=== PATIENT | male | born 1945 | race Caucasian/White ===

== ENCOUNTER → 2017-10-15 07:49 | Outpatient (CLI) | payer MEDICARE, OTHER, SELFPAY ==
[2017-10-15 08:42] LABS: Hematocrit 46.3 % (41-53); Hemoglobin 15.3 g/dL (13.5-17.5); Mean Corpuscular Hemoglobin 31.6 PG (26-34); Mean Corpuscular Volume 95.8 fL (80-100); Platelet Count 337 X10^3/uL (150-400); Red Blood Cell Count 4.84 X10^6/uL (4.5-5.9); Red Cell Distribution Width 14.4 % (11.6-14.8); White Blood Cell Count 21.7 X10^3/uL (4.5-11.0)
[2017-10-15 08:52] LABS: Add Manual Diff / Slide Review YES
[2017-10-15 09:10] LABS: Neutrophils Absolute Manual 6510 /uL (3000-5900); Total Cells Counted 100
[2017-10-15 09:11] LABS: RBC Morphology Normal Morphology; Smudge Cells 2+
[2017-10-15 09:41] LABS: Alanine Aminotransferase 34 IU/L (21-72); Albumin 4.3 g/dL (3.5-5.0); Albumin Globulin Ratio 1.5 (1.0-2.8); Alkaline Phosphatase 164 U/L (38-126); Aspartate Aminotransferase 24 IU/L (17-59); Bilirubin Total 0.7 mg/dL (0.2-1.3); Blood Urea Nitrogen 18 mg/dL (9-20); Calcium 9.8 mg/dL (8.4-10.2); Carbon Dioxide 27 mmol/L (22-32); Chloride 102 mmol/L (98-107); Cholesterol 252 mg/dL (140-199); Estimated Glomerular Filt Rate > 60.0 mL/min (>60); Globulin 2.8 g/dL (1.7-4.1); Glucose 102 mg/dL (80-110); HDL Cholesterol 45 mg/dL (40-60); HEMOLYSIS < 15 (0-50); LDL Cholesterol Calculated 184 mg/dL (<100); Potassium 4.5 mmol/L (3.4-5.1); Sodium 141 mmol/L (137-145); Total Protein 7.1 g/dL (6.3-8.2); Triglycerides 117 mg/dL (35-150)
[2017-10-15 09:50] LABS: TSH w/ Reflex to FT4 0.72 uIU/mL (0.47-4.68)
[2017-10-15 10:11] LABS: Prostate Specific Antigen Scrn < 0.064 ng/mL (0.1-4.0)
== END ==
PROVIDERS: PCP Family Medicine; Visit Provider Family Medicine
DX: E78.5 Hyperlipidemia, unspecified (principal); Z00.00 Encounter for general adult medical examination without abnormal findings; Z12.5 Encounter for screening for malignant neoplasm of prostate
CPT/HCPCS: 36415; 80053; 80061; 84443; 85025; G0103

== ENCOUNTER → 2018-02-24 12:54 | Outpatient (CLI) | payer MEDICARE, OTHER, SELFPAY ==
[2018-02-24 13:29] LABS: Hematocrit 44.3 % (41-53); Hemoglobin 14.9 g/dL (13.5-17.5); Mean Corpuscular HGB Conc 33.6 % (30-36); Mean Corpuscular Hemoglobin 32.4 PG (26-34); Mean Corpuscular Volume 96.5 fL (80-100); Platelet Count 353 X10^3/uL (150-400); Red Blood Cell Count 4.59 X10^6/uL (4.5-5.9); Red Cell Distribution Width 13.9 % (11.6-14.8); White Blood Cell Count 22.4 X10^3/uL (4.5-11.0)
[2018-02-24 13:30] LABS: Add Manual Diff / Slide Review YES
[2018-02-24 14:00] LABS: Alanine Aminotransferase 34 IU/L (21-72); Albumin 4.5 g/dL (3.5-5.0); Albumin Globulin Ratio 1.7 (1.0-2.8); Alkaline Phosphatase 159 U/L (38-126); Aspartate Aminotransferase 33 IU/L (17-59); BUN Creatinine Ratio 22.5 (6-22); Bilirubin Total 0.7 mg/dL (0.2-1.3); Blood Urea Nitrogen 18 mg/dL (9-20); Calcium 9.6 mg/dL (8.4-10.2); Carbon Dioxide 24 mmol/L (22-32); Chloride 98 mmol/L (98-107); Estimated Glomerular Filt Rate > 60.0 mL/min (>60); Globulin 2.7 g/dL (1.7-4.1); Glucose 104 mg/dL (80-110); HEMOLYSIS < 15 (0-50); Potassium 4.3 mmol/L (3.4-5.1); Sodium 134 mmol/L (137-145); Total Protein 7.2 g/dL (6.3-8.2)
[2018-02-24 14:22] LABS: Neutrophils Absolute Manual 5824 /uL (3000-5900); Smudge Cells 1+; Total Cells Counted 100
[2018-02-24 14:23] LABS: Anisocytosis 1+
== END ==
PROVIDERS: Internal Medicine Hematology & Oncology; Family Provider Family Medicine; PCP Family Medicine; Visit Provider Nurse Practitioner Gerontology
DX: C91.90 Lymphoid leukemia, unspecified not having achieved remission (principal)
CPT/HCPCS: 36415; 80053; 85025

== ENCOUNTER → 2019-08-16 09:22 | Oncology outpatient (ONC) | payer MEDICARE, OTHER, SELFPAY ==
[2017-09-01 15:35] VITALS: BP 136/99; PULSE 73; RESP 15; TEMP 36.7; O2SAT 97
--- NOTE | 2017-09-01 16:34 | ONC.PN ---
Assessment and Plan - Time Spent with Patient IMPRESSION: 1. Chronic lymphocytic leukemia, diagnosed in 2001 during workup for partial gastrectomy for treatment of GERD and GIST. Treated with rituximab monotherapy by Dr. Vera in [place], [place]. 2. Gastrointestinal stromal tumor status post resection with partial gastrectomy in 2001-3. 3. GERD with plan to treat with Krish fundoplication prompting diagnosis of numbers 1 and 2 above. 4. Lymphocytosis, secondary to 1. 5. History of prostate cancer, Stephany 6, discovered on PSA monitoring and status post prostatectomy performed by Dr. Ruiz in 2008. I reviewed the findings, lab results and plan with him and his today. He feels well and has no new symptoms or findings on examination to raise concern for progressive CLL. No indication for intervention or treatment at this time. Most recent labs from March 08, 2017 showed WBC 20884, 25% neutrophils, 67% lymphocytes, hemoglobin 15.9, hematocrit 40.0, platelet count 144100. He otherwise feels well and has no additional concerns at this time. No GI symptoms or other findings of concern. Reviewed follow-up schedule and plan with him and his today. Recommend he continue close monitoring call back if new symptoms or concerns arise. Would otherwise recommend he check counts at least every 6 months with return visit in 1 year, sooner if problems arise. Repeat CT abdomen and pelvis based on symptoms, clinical concerns or findings on examination. PLAN: 1. Continue self monitoring and call back as needed. 2. Follow up with other providers as planned. 3. CBC, CMP every [address] abdomen/pelvis PRN symptoms or clinical findings. 5. Return appointment here in 1 year. DICTATED BY EVERTON WHELAN MD MEDICAL ONCOLOGY AND HEMATOLOGY PN -Subjective Interval history: HEMATOLOGY/ONCOLOGY PROGRESS NOTE DATE OF SERVICE: SEPTEMBER 01, 2017 PATIENT NAME: COREY CAMPOS DATE OF : 1945 IDENTIFICATION: Mr. Campos is a 72-year-old gentleman with history of CLL and of gastrointestinal stromal tumor (GIST) who returns in follow-up today. INTERVAL HISTORY: He returns in follow-up with his , Tita. HE CONTINUES TO FEEL WELL AND DENIES NEW SYMPTOMS OR SPECIFIC CONCERNS. No fever, night sweats or recent weight loss. He denies abdominal pain, bloating or early satiety. Appetite and energy level are stable. No bruising or rash, bone pain, headaches or new neurologic symptoms. No cough or dyspnea. He has not received treatment for his CLL since completing treatment with rituximab with Dr. Vera into [facility] in 2001. Subsequently followed by Dr. Duran at [facility] for number of years, without treatment and more recently here in [place] by Dr. Valdez. PAST ONCOLOGY HISTORY FROM LAST NOTE: Hx of Present illness The patient is a 71 year old Male who is being seen in the clinic 09/02/16 for chronic lymphocytic leukemia. He has been treated in the past but has been stable off treatment for many years. TIMELINE 1. Incidental discovery of CLL during workup for partial gastrectomy in 2001 and 2002, treated with rituximab monotherapy previously. The schedule and doses are covered in my consultation of 03/20/2011. Followed by Dr. Duran at [facility]. He has not received additional treatment. Past Medical History 2. History of Sara fundoplication with partial gastrectomy in 2001 or 2002 after workup for GERD, with a finding of a GIST which was fully resected and received no further treatment. 3. 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 It was not a neuroendocrine tumor. It was a low-grade tumor. We do not have the details. Surgery was in 04/2004. 4. History of prostate cancer, Stephany 3+3=6, stage IIA, T1 N0 M0, status post radical prostatectomy by Dr. Ruiz 03/29/2009. Past Surgical History 2. History of Sara fundoplication with partial gastrectomy in 2001 or 2002 after workup for GERD, with a finding of a GIST which was fully resected and received no further treatment. 3. 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 It was not a neuroendocrine tumor. It was a low-grade tumor. We do not have the details. Surgery was in 04/2004. 4. History of prostate cancer, [place] 3+3=6, stage IIA, T1 N0 M0, status post radical prostatectomy by Dr. Ruiz 03/29/2009. Past Medical History The patient's past medical history is significant for: SPLENECTOMY Pain level (0-10): 0 Current Medications ASPIRIN (Aspirin EC) 81 MG TABLET.DR 81 MG PO QDAY (Reported) TAKE ONE TABLET BY MOUTH DAILY LISINOPRIL 20 MG TABLET 20 mg PO QDAY HTN Take one tablet by mouth daily. NTBS FOR ANNUAL EXAM AND LABS FOR ADDITIONAL REFILLS. 06/16/16 Prescribed by Kevon Roberts MD Allergies Coded Allergies: No Known Allergies (07/22/16) Patient HAS received vaccine No Reason pt HAS NOT received Vaccine Patient declined Smoking status:+ Former smoker Laboratory Tests Lab ALT 29 IU/L 08/27/16 0751 AST 23 IU/L 08/27/16 0751 Alkaline Phosphatase 151 U/L H 08/27/16 0751 BUN 19.0 mg/dL 08/27/16 0751 Calcium 9.5 mg/dL 08/27/16 0751 Creatinine 0.80 mg/dL 08/27/16 0751 Total Bilirubin 0.6 mg/dL 08/27/16 0751 WBC 28.5 X10^3/uL H 10/31/14 1032 WBC 30.7 X10^3/uL*H 05/28/15 0747 WBC 27.2 X10^3/uL H 06/12/15 0831 WBC 28.1 X10^3/uL H 09/16/15 0836 WBC 24.1 X10^3/uL H 12/18/15 0838 WBC 24.3 X10^3/uL H 03/11/16 0826 WBC 22.6 X10^3/uL H 08/27/16 0751 IgG 757 mg/dL 08/27/16 0751 Diagnostic Imaging PROCEDURE: CHEST/ABDOMEN/PELVIS WITH CONTRAST INDICATIONS: ABDOMINAL PAIN AND LYMPHOMA TECHNIQUE: After the administration of oral and intravenous contrast, 5 mm thick sections acquired from the lung apices to the symphysis. 5 mm coronal and sagittal reformats were performed, with additional 7 mm coronal MIP reformats through the lungs. For radiation dose reduction, the following was used: automated exposure control, adjustment of mA and/or kV according to patient size. COMPARISON: [facility], CT, ABDOMEN/PELVIS WITH CONTRAST, 07/21/2015, 16:32. [facility], CT, CHEST/ABD/PEL WITH CONTRAST, 01/20/2016, 10:34. FINDINGS: Image quality: Excellent. CHEST: Lungs and pleura: No acute airspace opacities. No pleural effusions or pneumothorax. Peripheral chronic fibrotic markings are present but considered unchanged. Central and peripheral airways appear patent and normal in caliber. Mediastinum: Heart size is normal. No pericardial effusion. No mediastinal or hilar adenopathy by size criteria. Thoracic aorta and central pulmonary arteries are normal in size. Esophagus is normal in caliber. No hiatal hernia. Chest wall: No axillary or supraclavicular adenopathy by size criteria. Thyroid gland is within normal limits. ABDOMEN: Solid organs: Liver and spleen are normal in size and enhancement. Gallbladder is within normal limits. Biliary system is non dilated. Pancreas enhances normally. No adrenal nodules. Kidneys demonstrate normal size and enhancement, without hydronephrosis. Peritoneum and bowel: Bowel loops demonstrate normal wall thickness and caliber. No free fluid or air. The appendix is normal Nodes and vessels: No retroperitoneal or mesenteric adenopathy by size criteria. Aorta and inferior vena cava are normal in size. Aorta is atherosclerotic. Miscellaneous: No ventral hernias. PELVIS: Genitourinary: Bladder wall thickness is slightly irregular suggesting small diverticula maybe present at the right base. Prostate is moderately enlarged. Miscellaneous: No inguinal hernias or adenopathy. Bones: No suspicious bony lesions. No vertebral body compression fractures. IMPRESSION: 1. Acute disease is not seen. 2. No increase in adenopathy or adenopathy by size is seen. Spleen remains normal in size. Dictated by: Sebasitan Perez M.D. on 05/29/2016 at 16:28 Assessment/Plan Assessment This is a 71-year-old man with a history of CLL that has not required treatment. Most recent CT imaging in May 2016 showed no evidence of disease. He can continue to be seen in periodic surveillance as described below. Time spent with Patient A total of 30 minutes were spent on this appointment, greater than 50% of that time [id number] with the patient in counseling and coordination of care. Discussion with patient included lab results, [diagnosis], treatment options, risks and benefits. Plan for treatment Labs including CBC CMP and LDH in 6 and 12 months and M.D. visitand physical examination in 12 months. at 3971 <Electronically signed by Darrell Valdez MD> (PLEASE NOTE): This report may have been all or partially generated using a voice recognition software program. While every effort has been made to edit content upon its completion, wax pattern coater errors may occur. Please contact the [facility] [employer] Dept. at if there are any questions, or if further clarification is necessitated. - Additional ROS Additional ROS: Review of systems: General: No recent weight loss, fever or night sweats. HEENT: No headaches, vision change, epistaxis or dysphagia. Respiratory: Negative. Cardiac: Negative. GI: No bloating, nausea, early satiety or weight loss. : Negative. Musculoskeletal: No new bone pain or swelling in the legs. Neurologic: Negative. Results - Imaging Additional studies: Procedures Injection or infusion of other therapeutic or prophylactic substance (11/01/13) RADICAL PROSTATECTOMY (03/29/09) REGIONAL LYMPH NODE EXC (03/29/09) Home Medications and Allergies Home Medications Medication Instructions Recorded Confirmed Type aspirin 81 mg PO QDAY #0 05/18/12 09/01/17 History lisinopril 20 mg tablet 20 mg PO QDAY #90 tab 08/12/17 09/01/17 Rx Allergies Allergy/AdvReac Type Severity Reaction Status Date / Time No Known Drug Allergies Allergy Verified 09/01/17 15:37 Exam Vital signs: Last Vital Signs Temp 98.0 F 09/01/17 15:35 Pulse 73 09/01/17 15:35 Resp 15 09/01/17 15:35 BP 136/99 H 09/01/17 15:35 Pulse Ox 97 09/01/17 15:35 - Constitutional positive no acute distress, positive average body habitus, positive cooperative - Routine HEENT Exam Head: Present: normocephalic, atraumatic. Absent: cushingoid faces, facial swelling Eye: Present: EOMI, PERRL. Absent: conjunctival icterus, scleral injection, periorbital ecchymosis, periorbital swelling ENT: Present: mucous membranes moist, oropharynx clear - Routine Neck Exam Present: supple. Absent: JVD, lymphadenopathy - Routine Chest/Breast/Axilla Exam Axillae: Absent: lymphadenopathy - Routine Respiratory Exam Present: Clear to auscultation bilaterally. Absent: accessory muscle use, rales, wheezes - Routine Cardiovascular Exam Present: RRR, S1, S2. Absent: murmur, S3 - Routine Abdominal Exam Present: soft, normoactive bowel sounds. Absent: distended, guarding, organomegaly Palpation/Percussion: Absent: hepatomegaly - Routine Extremities Exam Present: full ROM. Absent: cyanosis, clubbing, edema - Routine Back/Spine Exam Back/Spine: Absent: paraspinal tenderness - Routine Skin Exam Present: intact. Absent: cyanosis, erythema, petechiae, jaundice, rash, ecchymosis - Routine Neurological Exam Present: alert, oriented X3, moving all extremities, normal tone, normal speech. Absent: altered mental status - Routine Psychiatric Exam Present: normal affect, normal thought process, cooperative, good judgment
--- NOTE | 2017-09-01 16:42 | P.PNONC_ITS ---
Assessment and Plan - Time Spent with Patient IMPRESSION: 1. Chronic lymphocytic leukemia, diagnosed in 2001 during workup for partial gastrectomy for treatment of GERD and GIST. Treated with rituximab monotherapy by Dr. Vera in [place], [place]. 2. Gastrointestinal stromal tumor status post resection with partial gastrectomy in 2001-3. 3. GERD with plan to treat with Krish fundoplication prompting diagnosis of numbers 1 and 2 above. 4. Lymphocytosis, secondary to 1. 5. History of prostate cancer, Stephany 6, discovered on PSA monitoring and status post prostatectomy performed by Dr. Ruiz in 2008. I reviewed the findings, lab results and plan with him and his today. He feels well and has no new symptoms or findings on examination to raise concern for progressive CLL. No indication for intervention or treatment at this time. Most recent labs from March 08, 2017 showed WBC 71429, 25% neutrophils, 67% lymphocytes, hemoglobin 15.9, hematocrit 40.0, platelet count [id number]. He otherwise feels well and has no additional concerns at this time. No GI symptoms or other findings of concern. Reviewed follow-up schedule and plan with him and his today. Recommend he continue close monitoring call back if new symptoms or concerns arise. Would otherwise recommend he check counts at least every 6 months with return visit in 1 year, sooner if problems arise. Repeat CT abdomen and pelvis based on symptoms, clinical concerns or findings on examination. PLAN: 1. Continue self monitoring and call back as needed. 2. Follow up with other providers as planned. 3. CBC, CMP every [address] abdomen/pelvis PRN symptoms or clinical findings. 5. Return appointment here in 1 year. DICTATED BY EVERTON WHELAN MD MEDICAL ONCOLOGY AND HEMATOLOGY PN -Subjective Interval history: HEMATOLOGY/ONCOLOGY PROGRESS NOTE DATE OF SERVICE: SEPTEMBER 01, 2017 PATIENT NAME: COREY CAMPOS DATE OF : 1945 IDENTIFICATION: Mr. Campos is a 72-year-old gentleman with history of CLL and of gastrointestinal stromal tumor (GIST) who returns in follow-up today. INTERVAL HISTORY: He returns in follow-up with his , Tita. HE CONTINUES TO FEEL WELL AND DENIES NEW SYMPTOMS OR SPECIFIC CONCERNS. No fever, night sweats or recent weight loss. He denies abdominal pain, bloating or early satiety. Appetite and energy level are stable. No bruising or rash, bone pain , headaches or new neurologic symptoms. No cough or dyspnea. He has not received treatment for his CLL since completing treatment with rituximab with Dr. Vera into [facility] in 2001. Subsequently followed by Dr. Duran at [facility] for number of years, without treatment and more recently here in [place] by Dr. Valdez. PAST ONCOLOGY HISTORY FROM LAST NOTE: Hx of Present illness The patient is a 71 year old Male who is being seen in the clinic 09/02/16 for chronic lymphocytic leukemia. He has been treated in the past but has been stable off treatment for many years. TIMELINE 1. Incidental discovery of CLL during workup for partial gastrectomy in 2001 and 2002, treated with rituximab monotherapy previously. The schedule and doses are covered in my consultation of 03/20/2011. Followed by Dr. Duran at [facility]. He has not received additional treatment. Past Medical History 2. History of Sara fundoplication with partial gastrectomy in 2001 or 2002 after workup for GERD, with a finding of a GIST which was fully resected and received no further treatment. 3. 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 It was not a neuroendocrine tumor. It was a low-grade tumor. We do not have the details. Surgery was in 04/2004. 4. History of prostate cancer, Stephany 3+3=6, stage IIA, T1 N0 M0, status post radical prostatectomy by Dr. Ruiz 03/29/2009. Past Surgical History 2. History of Sara fundoplication with partial gastrectomy in 2001 or 2002 after workup for GERD, with a finding of a GIST which was fully resected and received no further treatment. 3. 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 It was not a neuroendocrine tumor. It was a low-grade tumor. We do not have the details. Surgery was in 04/2004. 4. History of prostate cancer, Stephany 3+3=6, stage IIA, T1 N0 M0, status post radical prostatectomy by Dr. Ruiz 03/29/2009. Past Medical History The patient's past medical history is significant for: SPLENECTOMY Pain level (0-10): 0 Current Medications ASPIRIN (Aspirin EC) 81 MG TABLET.DR 81 MG PO QDAY (Reported) TAKE ONE TABLET BY MOUTH DAILY LISINOPRIL 20 MG TABLET 20 mg PO QDAY HTN Take one tablet by mouth daily. NTBS FOR ANNUAL EXAM AND LABS FOR ADDITIONAL REFILLS. 06/16/16 Prescribed by Kevon Roberts MD Allergies Coded Allergies: No Known Allergies (07/22/16) Patient HAS received vaccine No Reason pt HAS NOT received Vaccine Patient declined Smoking status:+ Former smoker Laboratory Tests Lab ALT 29 IU/L 08/27/16 0751 AST 23 IU/L 08/27/16 0751 Alkaline Phosphatase 151 U/L H 08/27/16 0751 BUN 19.0 mg/dL 08/27/16 0751 Calcium 9.5 mg/dL 08/27/16 0751 Creatinine 0.80 mg/dL 08/27/16 0751 Total Bilirubin 0.6 mg/dL 08/27/16 0751 WBC 28.5 X10^3/uL H 10/31/14 1032 WBC 30.7 X10^3/uL*H 05/28/15 0747 WBC 27.2 X10^3/uL H 06/12/15 0831 WBC 28.1 X10^3/uL H 09/16/15 0836 WBC 24.1 X10^3/uL H 12/18/15 0838 WBC 24.3 X10^3/uL H 03/11/16 0826 WBC 22.6 X10^3/uL H 08/27/16 0751 IgG 757 mg/dL 08/27/16 0751 Diagnostic Imaging PROCEDURE: CHEST/ABDOMEN/PELVIS WITH CONTRAST INDICATIONS: ABDOMINAL PAIN AND LYMPHOMA TECHNIQUE: After the administration of oral and intravenous contrast, 5 mm thick sections acquired from the lung apices to the symphysis. 5 mm coronal and sagittal reformats were performed, with additional 7 mm coronal MIP reformats through the lungs. For radiation dose reduction, the following was used: automated exposure control, adjustment of mA and/or kV according to patient size. COMPARISON: [facility], CT, ABDOMEN/PELVIS WITH CONTRAST, 07/21/2015, 16: 32. [facility], CT, CHEST/ABD/PEL WITH CONTRAST, 01/20/2016, 10:34. FINDINGS: Image quality: Excellent. CHEST: Lungs and pleura: No acute airspace opacities. No pleural effusions or pneumothorax. Peripheral chronic fibrotic markings are present but considered unchanged. Central and peripheral airways appear patent and normal in caliber. Mediastinum: Heart size is normal. No pericardial effusion. No mediastinal or hilar adenopathy by size criteria. Thoracic aorta and central pulmonary arteries are normal in size. Esophagus is normal in caliber. No hiatal hernia. Chest wall: No axillary or supraclavicular adenopathy by size criteria. Thyroid gland is within normal limits. ABDOMEN: Solid organs: Liver and spleen are normal in size and enhancement. Gallbladder is within normal limits. Biliary system is non dilated. Pancreas enhances normally. No adrenal nodules. Kidneys demonstrate normal size and enhancement, without hydronephrosis. Peritoneum and bowel: Bowel loops demonstrate normal wall thickness and caliber. No free fluid or air. The appendix is normal Nodes and vessels: No retroperitoneal or mesenteric adenopathy by size criteria. Aorta and inferior vena cava are normal in size. Aorta is atherosclerotic. Miscellaneous: No ventral hernias. PELVIS: Genitourinary: Bladder wall thickness is slightly irregular suggesting small diverticula maybe present at the right base. Prostate is moderately enlarged. Miscellaneous: No inguinal hernias or adenopathy. Bones: No suspicious bony lesions. No vertebral body compression fractures. IMPRESSION: 1. Acute disease is not seen. 2. No increase in adenopathy or adenopathy by size is seen. Spleen remains normal in size. Dictated by: Sebastian Perez M.D. on 05/29/2016 at 16:28 Assessment/Plan Assessment This is a 71-year-old man with a history of CLL that has not required treatment. Most recent CT imaging in May 2016 showed no evidence of disease. He can continue to be seen in periodic surveillance as described below. Time spent with Patient A total of 30 minutes were spent on this appointment, greater than 50% of that time [id number] with the patient in counseling and coordination of care. Discussion with patient included lab results, [diagnosis], treatment options, risks and benefits. Plan for treatment Labs including CBC CMP and LDH in 6 and 12 months and M.D. visitand physical examination in 12 months. at 1709 <Electronically signed by Darrell Valdez MD> (PLEASE NOTE): This report may have been all or partially generated using a voice recognition software program. While every effort has been made to edit content upon its completion, precision assembly inspector errors may occur. Please contact the [facility] [employer] Dept. at if there are any questions, or if further clarification is necessitated. - Additional ROS Additional ROS: Review of systems: General: No recent weight loss, fever or night sweats. HEENT: No headaches, vision change, epistaxis or dysphagia. Respiratory: Negative. Cardiac: Negative. GI: No bloating, nausea, early satiety or weight loss. : Negative. Musculoskeletal: No new bone pain or swelling in the legs. Neurologic: Negative. Results - Imaging Additional studies: Procedures Injection or infusion of other therapeutic or prophylactic substance (11/01/13) RADICAL PROSTATECTOMY (03/29/09) REGIONAL LYMPH NODE EXC (03/29/09) Home Medications and Allergies Home Medications Medication Instructions Recorded Confirmed Type aspirin 81 mg PO QDAY #0 05/18/12 09/01/17 History lisinopril 20 mg tablet 20 mg PO QDAY #90 tab 08/12/17 09/01/17 Rx Allergies Allergy/AdvReac Type Severity Reaction Status Date / Time No Known Drug Allergies Allergy Verified 09/01/17 15:37 Exam Vital signs: Last Vital Signs Temp 98.0 F 09/01/17 15:35 Pulse 73 09/01/17 15:35 Resp 15 09/01/17 15:35 BP 136/99 H 09/01/17 15:35 Pulse Ox 97 09/01/17 15:35 - Constitutional positive no acute distress, positive average body habitus, positive cooperative - Routine HEENT Exam Head: Present: normocephalic, atraumatic. Absent: cushingoid faces, facial swelling Eye: Present: EOMI, PERRL. Absent: conjunctival icterus, scleral injection, periorbital ecchymosis, periorbital swelling ENT: Present: mucous membranes moist, oropharynx clear - Routine Neck Exam Present: supple. Absent: JVD, lymphadenopathy - Routine Chest/Breast/Axilla Exam Axillae: Absent: lymphadenopathy - Routine Respiratory Exam Present: Clear to auscultation bilaterally. Absent: accessory muscle use, rales , wheezes - Routine Cardiovascular Exam Present: RRR, S1, S2. Absent: murmur, S3 - Routine Abdominal Exam Present: soft, normoactive bowel sounds. Absent: distended, guarding, organomegaly Palpation/Percussion: Absent: hepatomegaly - Routine Extremities Exam Present: full ROM. Absent: cyanosis, clubbing, edema - Routine Back/Spine Exam Back/Spine: Absent: paraspinal tenderness - Routine Skin Exam Present: intact. Absent: cyanosis, erythema, petechiae, jaundice, rash, ecchymosis - Routine Neurological Exam Present: alert, oriented X3, moving all extremities, normal tone, normal speech . Absent: altered mental status - Routine Psychiatric Exam Present: normal affect, normal thought process, cooperative, good judgment
[2018-08-31 09:37] LABS: Alanine Aminotransferase 15 IU/L (21-72); Albumin 3.7 g/dL (3.5-5.0); Albumin Globulin Ratio 1.4 (1.0-2.8); Alkaline Phosphatase 148 U/L (38-126); Aspartate Aminotransferase 21 IU/L (17-59); BUN Creatinine Ratio 24.3 (6-22); Bilirubin Total 0.5 mg/dL (0.2-1.3); Blood Urea Nitrogen 17 mg/dL (9-20); Carbon Dioxide 28 mmol/L (22-32); Chloride 105 mmol/L (98-107); Estimated Glomerular Filt Rate > 60.0 mL/min (>60); Globulin 2.6 g/dL (1.7-4.1); Glucose 95 mg/dL (80-110); HEMOLYSIS < 15 (0-50); Potassium 3.8 mmol/L (3.4-5.1); Sodium 140 mmol/L (137-145); Total Protein 6.3 g/dL (6.3-8.2)
[2018-08-31 10:14] LABS: Add Manual Diff / Slide Review NO; Basophils Absolute Auto 100 /uL (0-100); Basophils Percent Auto 0.9 % (0-2); Eosinophils Absolute Auto 1400 /uL (0-450); Eosinophils Percent Auto 9.7 % (2-4); Hematocrit 41.7 % (41-53); Hemoglobin 13.7 g/dL (13.5-17.5); Lymphocytes Absolute Auto 8500 /uL (1100-4500); Lymphocytes Percent Auto 59.4 % (25-40); Mean Corpuscular HGB Conc 32.9 % (30-36); Mean Corpuscular Hemoglobin 32.5 PG (26-34); Mean Corpuscular Volume 98.8 fL (80-100); Monocytes Absolute Auto 500 /uL (0-900); Monocytes Percent Auto 3.7 % (3-14); Neutrophils Absolute Auto 3800 /uL (1500-7000); Neutrophils Percent Auto 26.3 % (50-75); Platelet Count 346 X10^3/uL (150-400); Red Blood Cell Count 4.22 X10^6/uL (4.5-5.9); Red Cell Distribution Width 14.3 % (11.6-14.8); White Blood Cell Count 14.3 X10^3/uL (4.5-11.0)
[2018-09-01 11:56] VITALS: BP 118/71; PULSE 69; RESP 20; TEMP 36.4; O2SAT 98
--- NOTE | 2018-09-01 12:09 | ONC.PN ---
PN -Subjective Interval history: Mr. Trujillo is a 73-year-old gentleman with history of CLL, GIST, neuroendocrine tumor of the pancreas, and prostate cancer who returns in follow-up today. Dr. Roberts is his PCP. He reports Perfect energy. He lost a lot of weight on nutrisys program. His gastric surgery was intended for acid reflux, not for obesity. No night sweats. No fever. No lumps or bumps. No SOB, No CP. No abdominal pain. Oncological History: 1. Incidental discovery of CLL during workup for partial gastrectomy in 2001 and 2002, treated with rituximab monotherapy. He has not received additional treatment. 2. History of Sara fundoplication with partial gastrectomy in 2001 or 2002 after workup for GERD, with a finding of a GIST which was fully resected and received no further treatment. 3. 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 It was not a low-grade neuroendocrine tumor. Surgery was in 04/2004. 4. History of prostate cancer, [place] 3+3=6, stage IIA, T1 N0 M0, status post radical prostatectomy by Dr. Ruiz 03/29/2009. - Additional ROS All systems PM: reviewed and no additional remarkable complaints except as stated Home Medications and Allergies Home Medications Medication Instructions Recorded Confirmed Type aspirin 81 mg PO QDAY #0 05/18/12 09/01/18 History lisinopril 20 mg tablet 20 mg PO QDAY #90 tab 10/27/17 09/01/18 Rx sildenafil 25 mg tablet 25 mg PO ONCE PRN #24 tab 11/15/17 09/01/18 Rx Allergies Allergy/AdvReac Type Severity Reaction Status Date / Time No Known Drug Allergies Allergy Verified 10/27/17 09:14 Exam Vital signs: Last Vital Signs Temp 97.6 F 09/01/18 11:56 Pulse 69 09/01/18 11:56 Resp 20 09/01/18 11:56 BP 118/71 09/01/18 11:56 Pulse Ox 98 09/01/18 11:56 ECOG 0 - Constitutional positive no acute distress, positive average body habitus, positive cooperative - Routine HEENT Exam Head: Present: normocephalic, atraumatic Eye: Present: EOMI, PERRL, normal accommodation. Absent: conjunctival icterus ENT: Present: mucous membranes moist - Routine Neck Exam Present: supple, full ROM. Absent: JVD, lymphadenopathy, thyromegaly, tenderness, swelling - Routine Chest/Breast/Axilla Exam Chest wall exam standard: Absent: tenderness, mass Axillae: Absent: lymphadenopathy - Routine Respiratory Exam Present: Clear to auscultation bilaterally. Absent: accessory muscle use, wheezes - Routine Cardiovascular Exam Present: RRR, S1, S2. Absent: murmur, gallop, rubs - Routine Abdominal Exam Present: soft, normoactive bowel sounds. Absent: tenderness, distended, organomegaly, mass - Routine Extremities Exam Absent: edema - Routine Neurological Exam Present: alert, oriented X3, CN II-XII intact, normal reflexes. Absent: sensory deficit, motor deficit - Routine Psychiatric Exam Present: normal affect, normal thought process, cooperative Results - Labs Laboratory Last Values WBC 14.3 X10^3/uL (4.5-11.0) H 08/31/18 08:23 RBC 4.22 X10^6/uL (4.5-5.9) L 08/31/18 08:23 Hgb 13.7 g/dL (13.5-17.5) 08/31/18 08:23 Hct 41.7 % (41-53) 08/31/18 08:23 MCV 98.8 fL (80-100) 08/31/18 08:23 MCH 32.5 PG (26-34) 08/31/18 08:23 MCHC 32.9 % (30-36) 08/31/18 08:23 RDW 14.3 % (11.6-14.8) 08/31/18 08:23 Plt Count 346 X10^3/uL (150-400) 08/31/18 08:23 Neut % (Auto) 26.3 % (50-75) L 08/31/18 08:23 Lymph % (Auto) 59.4 % (25-40) H 08/31/18 08:23 Mcdonough % (Auto) 3.7 % (3-14) 08/31/18 08:23 Eos % (Auto) 9.7 % (2-4) H 08/31/18 08:23 Baso % (Auto) 0.9 % (0-2) 08/31/18 08:23 Neut # (Auto) 3800 /uL (4196-2173) 08/31/18 08:23 Lymph # (Auto) 8500 /uL (5537-0636) H 08/31/18 08:23 Mcdonough # (Auto) 500 /uL (0-900) 08/31/18 08:23 Eos # (Auto) 1400 /uL (0-450) H 08/31/18 08:23 Baso # (Auto) 100 /uL (0-100) 08/31/18 08:23 Sodium 140 mmol/L (137-145) 08/31/18 08:23 Potassium 3.8 mmol/L (3.4-5.1) 08/31/18 08:23 Chloride 105 mmol/L (98-107) 08/31/18 08:23 Carbon Dioxide 28 mmol/L (22-32) 08/31/18 08:23 BUN 17 mg/dL (9-20) 08/31/18 08:23 Creatinine 0.70 mg/dL (0.66-1.25) 08/31/18 08:23 Estimated GFR > 60.0 mL/min (>60) 08/31/18 08:23 BUN/Creatinine Ratio 24.3 (6-22) H 08/31/18 08:23 Glucose 95 mg/dL (80-110) 08/31/18 08:23 Calcium 9.0 mg/dL (8.4-10.2) 08/31/18 08:23 Total Bilirubin 0.5 mg/dL (0.2-1.3) 08/31/18 08:23 AST 21 IU/L (17-59) 08/31/18 08:23 ALT 15 IU/L (21-72) L 08/31/18 08:23 Alkaline Phosphatase 148 U/L (38-126) H 08/31/18 08:23 Total Protein 6.3 g/dL (6.3-8.2) 08/31/18 08:23 Albumin 3.7 g/dL (3.5-5.0) 08/31/18 08:23 Globulin 2.6 g/dL (1.7-4.1) 08/31/18 08:23 Albumin/Globulin Ratio 1.4 (1.0-2.8) 08/31/18 08:23 - Imaging Additional studies: Procedures Injection or infusion of other therapeutic or prophylactic substance (11/01/13) RADICAL PROSTATECTOMY (03/29/09) REGIONAL LYMPH NODE EXC (03/29/09) Assessment and Plan (1) Chronic lymphocytic leukemia Incidental discovery of CLL during workup for partial gastrectomy in 2001 and 2002, treated with rituximab monotherapy. He has not received additional treatment. I reviewed the lab tests with the patient. Patient's total white cell count remains stable and may be slightly better. I do not think there is any B symptoms. We will continue active surveillance. Plan: RTC in one year, CBC, CMP (2) Prostate cancer History of prostate cancer, [place] 3+3=6, stage IIA, T1 N0 M0, status post radical prostatectomy by Dr. Ruiz 03/29/2009. His PSA level has been below detection limit in Sep 2017. Patient said that his primary care provider is going to recheck in September of this year. I emphasized that the continued follow-up is of importance. Patient voiced understanding. When he comes back for follow-up in 1 year for for his CLL, we will check PSA level. 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 Most likely cured after the surgical resection. (4) Neuroendocrine tumor of pancreas A tumor in the tail of the pancreas was also found and resected with partial pancreatectomy and splenectomy in 2004. It was not a low-grade neuroendocrine tumor. Surgery was in 04/2004. Clinically, no signs or symptoms. We will continue to monitor. Instructed the patient to call for any signs or symptoms.
[2019-08-16 10:08] LABS: Hematocrit 43.9 % (41-53); Hemoglobin 14.8 g/dL (13.5-17.5); Mean Corpuscular HGB Conc 33.8 % (30-36); Mean Corpuscular Hemoglobin 33.3 PG (26-34); Mean Corpuscular Volume 98.7 fL (80-100); Platelet Count 309 X10^3/uL (150-400); Red Blood Cell Count 4.45 X10^6/uL (4.5-5.9); White Blood Cell Count 17.7 X10^3/uL (4.5-11.0)
[2019-08-16 10:09] LABS: Add Manual Diff / Slide Review YES
[2019-08-16 10:18] LABS: Alanine Aminotransferase 15 IU/L (<50); Albumin 4.2 g/dL (3.5-5.0); Albumin Globulin Ratio 1.5 (1.0-2.8); Alkaline Phosphatase 154 U/L (38-126); Aspartate Aminotransferase 25 IU/L (17-59); BUN Creatinine Ratio 23.3 (6-22); Bilirubin Total 0.4 mg/dL (0.2-1.3); Blood Urea Nitrogen 17 mg/dL (9-20); Calcium 9.2 mg/dL (8.4-10.2); Carbon Dioxide 28 mmol/L (22-32); Chloride 106 mmol/L (98-107); Estimated Glomerular Filt Rate > 60.0 mL/min (>60); Globulin 2.8 g/dL (1.7-4.1); Glucose 116 mg/dL (80-110); HEMOLYSIS < 15 (0-50); Potassium 4.6 mmol/L (3.4-5.1); Sodium 139 mmol/L (137-145)
[2019-08-16 10:22] LABS: Neutrophils Absolute Manual 4956 /uL (3000-5900); Total Cells Counted 100
[2019-08-16 10:23] LABS: Anisocytosis 2+; Smudge Cells 1+
[2019-08-16 10:52] LABS: Prostate Specific Antigen < 0.064 ng/mL (0.10-4.00)
== END ==
PROVIDERS: Family Provider Family Medicine; PCP Family Medicine; Visit Provider Internal Medicine Hematology & Oncology
DX: Z08 Encounter for follow-up examination after completed treatment for malignant neoplasm (principal); Z85.6 Personal history of leukemia; Z85.46 Personal history of malignant neoplasm of prostate
CPT/HCPCS: 36415; 80053; 84153; 85025; 99214; 99215

== ENCOUNTER → 2020-03-08 15:22 | Outpatient (CLI) | payer MEDICARE, SELFPAY ==
[2020-03-08] MEDS: COVID-19 VACC #1, MRNA(MOD) 100 MCG/0.5 ML VIAL IM (15:33)
== END ==
PROVIDERS: Family Provider Family Medicine; PCP Family Medicine; Visit Provider Internal Medicine
DX: Z23 Encounter for immunization (principal)
CPT/HCPCS: 0011A; 91301

== ENCOUNTER → 2020-04-05 10:38 | Outpatient (CLI) | payer MEDICARE, SELFPAY ==
[2020-04-05] MEDS: COVID-19 VACC #2, MRNA(MOD) 100 MCG/0.5 ML VIAL IM (10:44)
== END ==
PROVIDERS: Family Provider Family Medicine; PCP Family Medicine; Visit Provider Internal Medicine
DX: Z23 Encounter for immunization (principal)
CPT/HCPCS: 0012A; 91301

== ENCOUNTER → 2022-07-01 07:38 | Outpatient (CLI) | payer MEDICARE, SELFPAY ==
[2022-07-01 10:14] LABS: Add Manual Diff / Slide Review NO; Basophils Absolute Auto 100 /uL (0-100); Basophils Percent Auto 0.5 % (0-2); Eosinophils Absolute Auto 300 /uL (0-450); Eosinophils Percent Auto 1.6 % (2-4); Hematocrit 41.4 % (41-53); Hemoglobin 13.7 g/dL (13.5-17.5); Lymphocytes Absolute Auto 9500 /uL (1100-4500); Lymphocytes Percent Auto 62.4 % (25-40); Mean Corpuscular HGB Conc 33.2 % (30-36); Mean Corpuscular Hemoglobin 32.1 PG (26-34); Mean Corpuscular Volume 96.9 fL (80-100); Monocytes Absolute Auto 600 /uL (0-900); Monocytes Percent Auto 3.7 % (3-14); Neutrophils Absolute Auto 4900 /uL (1500-7000); Neutrophils Percent Auto 31.8 % (50-75); Platelet Count 330 X10^3/uL (150-400); Red Blood Cell Count 4.28 X10^6/uL (4.5-5.9); Red Cell Distribution Width 15.1 % (11.6-14.8); White Blood Cell Count 15.3 X10^3/uL (4.5-11.0)
[2022-07-01 10:47] LABS: Alanine Aminotransferase 19 IU/L (<50); Albumin Globulin Ratio 1.4 (1.0-2.8); Alkaline Phosphatase 151 U/L (38-126); Aspartate Aminotransferase 24 IU/L (17-59); BUN Creatinine Ratio 21.3 (6-22); Bilirubin Total 0.5 mg/dL (0.2-1.3); Blood Urea Nitrogen 17 mg/dL (9-20); Carbon Dioxide 28 mmol/L (22-32); Chloride 105 mmol/L (98-107); Cholesterol 193 mg/dL (140-199); Estimated Glomerular Filt Rate > 60 mL/min (>60); Globulin 2.8 g/dL (1.7-4.1); Glucose 86 mg/dL (80-110); HDL Cholesterol 59 mg/dL (40-60); HEMOLYSIS < 15 (0-50); LDL Cholesterol Calculated 118 mg/dL (<100); Potassium 4.1 mmol/L (3.4-5.1); Sodium 139 mmol/L (137-145); Total Protein 6.8 g/dL (6.3-8.2); Triglycerides 80 mg/dL (35-150)
[2022-07-01 11:18] LABS: TSH w/ Reflex to FT4 0.46 uIU/mL (0.47-4.68)
[2022-07-01 12:01] LABS: Free T4, Direct Thyroxine 0.87 ng/dL (0.78-2.19)
== END ==
PROVIDERS: Family Provider Family Medicine; PCP Family Medicine; Referring Provider Family Medicine; Visit Provider Family Medicine
DX: C91.90 Lymphoid leukemia, unspecified not having achieved remission (principal); E78.2 Mixed hyperlipidemia; I10 Essential (primary) hypertension
CPT/HCPCS: 36415; 80053; 80061; 84439; 84443; 85025

== ENCOUNTER → 2023-11-16 07:45 | Outpatient (CLI) | payer MEDICARE, SELFPAY ==
[2023-11-16 08:22] LABS: Add Manual Diff / Slide Review NO; Basophils Absolute Auto 100 /uL (0-100); Basophils Percent Auto 0.5 % (0-2); Eosinophils Absolute Auto 300 /uL (0-450); Eosinophils Percent Auto 1.7 % (2-4); Hematocrit 38.9 % (41-53); Hemoglobin 13.1 g/dL (13.5-17.5); Lymphocytes Absolute Auto 8300 /uL (1100-4500); Lymphocytes Percent Auto 55.2 % (25-40); Mean Corpuscular HGB Conc 33.6 % (30-36); Mean Corpuscular Hemoglobin 32.5 PG (26-34); Mean Corpuscular Volume 96.7 fL (80-100); Monocytes Absolute Auto 700 /uL (0-900); Monocytes Percent Auto 4.5 % (3-14); Neutrophils Absolute Auto 5800 /uL (1500-7000); Neutrophils Percent Auto 38.1 % (50-75); Platelet Count 334 X10^3/uL (150-400); Red Blood Cell Count 4.03 X10^6/uL (4.5-5.9); Red Cell Distribution Width 15.5 % (11.6-14.8); White Blood Cell Count 15.1 X10^3/uL (4.5-11.0)
[2023-11-16 08:42] LABS: Alanine Aminotransferase 18 IU/L (<50); Albumin 3.7 g/dL (3.5-5.0); Albumin Globulin Ratio 1.5 (1.0-2.8); Alkaline Phosphatase 158 U/L (38-126); Aspartate Aminotransferase 22 IU/L (17-59); BUN Creatinine Ratio 26.5 (6-22); Bilirubin Total 0.5 mg/dL (0.2-1.3); Blood Urea Nitrogen 18 mg/dL (9-20); Calcium 8.9 mg/dL (8.4-10.2); Carbon Dioxide 25 mmol/L (22-32); Chloride 107 mmol/L (98-107); Estimated Glomerular Filt Rate > 60 mL/min (>60); Globulin 2.5 g/dL (1.7-4.1); Glucose 99 mg/dL (80-110); HEMOLYSIS < 15 (0-50); Potassium 4.2 mmol/L (3.4-5.1); Sodium 139 mmol/L (137-145); Total Protein 6.2 g/dL (6.3-8.2)
[2023-11-16 09:14] LABS: Thyroid Stimulating Hormone 0.979 uIU/mL (0.47-4.68)
[2023-11-16 09:15] LABS: Prostate Specific Antigen Scrn < 0.064 ng/mL (0.1-4.0)
== END ==
PROVIDERS: Family Provider Family Medicine; PCP Family Medicine; Referring Provider Family Medicine; Visit Provider Family Medicine
DX: E78.2 Mixed hyperlipidemia (principal); C91.90 Lymphoid leukemia, unspecified not having achieved remission; C49.A2 Gastrointestinal stromal tumor of stomach; I10 Essential (primary) hypertension; C61 Malignant neoplasm of prostate; Z12.5 Encounter for screening for malignant neoplasm of prostate
CPT/HCPCS: 36415; 80053; 84443; 85025; G0103

== ENCOUNTER → 2024-08-25 07:23 | Outpatient (CLI) | payer MEDICARE, SELFPAY ==
[2024-08-25 07:55] LABS: Add Manual Diff / Slide Review NO; Hematocrit 43.5 % (41-53); Hemoglobin 14.7 g/dL (13.5-17.5); Lymphocytes Absolute Auto 8900 /uL (1100-4500); Mean Corpuscular HGB Conc 33.7 % (30-36); Mean Corpuscular Hemoglobin 32.0 PG (26-34); Mean Corpuscular Volume 94.9 fL (80-100); Platelet Count 326 X10^3/uL (150-400)
[2024-08-25 08:58] LABS: Alanine Aminotransferase 31 IU/L (<50); Albumin 4.3 g/dL (3.5-5.0); Albumin Globulin Ratio 1.5 (1.0-2.8); Alkaline Phosphatase 183 U/L (38-126); Blood Urea Nitrogen 18 mg/dL (9-20); Calcium 9.1 mg/dL (8.4-10.2); Carbon Dioxide 27 mmol/L (22-32); Chloride 104 mmol/L (98-107); Cholesterol 203 mg/dL (140-199); Estimated Glomerular Filt Rate > 60 mL/min (>60); Globulin 2.8 g/dL (1.7-4.1); Glucose 99 mg/dL (70-99); HDL Cholesterol 60 mg/dL (40-60); HEMOLYSIS < 15 (0-50); Potassium 4.0 mmol/L (3.4-5.1); Sodium 138 mmol/L (137-145); Total Protein 7.1 g/dL (6.3-8.2); Triglycerides 86 mg/dL (35-150)
[2024-08-25 09:30] LABS: TSH w/ Reflex to FT4 1.11 uIU/mL (0.47-4.68)
== END ==
PROVIDERS: Physician Assistant; PCP Family Medicine; Referring Provider Family Medicine; Visit Provider Family Medicine
DX: I10 Essential (primary) hypertension (principal); Z12.5 Encounter for screening for malignant neoplasm of prostate; E78.2 Mixed hyperlipidemia; C61 Malignant neoplasm of prostate; C91.90 Lymphoid leukemia, unspecified not having achieved remission
CPT/HCPCS: 36415; 80053; 80061; 84443; 85025; G0103